=== PATIENT | female | born 1985 | race Two or more races ===

== ENCOUNTER 2022-01-10 21:30 | Emergency (ER) | payer OTHER ==
[~2022-01-10] VITALS: Ht 165.1 cm; Wt 54.5 kg
[2022-01-10 21:32] VITALS: BP 141/84
== END 2022-01-10 22:37 ==
LOC: ER 21:31
DX: S80.812A Abrasion, left lower leg, initial encounter (principal); S80.811A Abrasion, right lower leg, initial encounter; F10.129 Alcohol abuse with intoxication, unspecified; Z72.89 Other problems related to lifestyle; W19.XXXA Unspecified fall, initial encounter; Y93.89 Activity, other specified; Y92.89 Other specified places as the place of occurrence of the external cause; Y99.8 Other external cause status; Y90.9 Presence of alcohol in blood, level not specified
CPT/HCPCS: 99284